=== PATIENT | male | born 1990 | race Hispanic/Latino ===

== ENCOUNTER 2017-12-31 06:58 | Emergency (ER) | payer BC, OTHER ==
[2017-12-31 07:19] VITALS: BP 119/80; PULSE 77; RESP 16; TEMP 98.5; O2SAT 98; BMI 27.7
--- NOTE | 2017-12-31 07:30 | ED PDOC ---
HPI: Chest Pain Time Seen by Provider: 12/31/17 07:23 History Per: Patient Onset/Duration Of Symptoms: Days (3) Current Symptoms Are (Timing): Still Present Severity: Moderate Quality: Sharp Exacerbating Factors: Deep Breathing, Other (Lying down) Additional Complaint(s): Right lower ant rib pain x 3 days. No h/o trauma. Worse on inspiration and lying flat. Denies cough fever or SOB. Denies abd pain. Past Medical History Vital Signs: Last Vital Signs Temp 98.5 F 12/31/17 07:18 Pulse 77 12/31/17 07:18 Resp 16 12/31/17 07:18 BP 119/80 12/31/17 07:18 Pulse Ox 98 12/31/17 07:31 - Medical History PMH: No Chronic Diseases - Family History Family History: States: Unknown Family Hx - Home Medications Home Medications: Ambulatory Orders Medication Instructions Recorded Cephalexin [cephalexin] 500 mg PO Q6 #28 cap 04/30/16 Azithromycin [Zithromax] 250 mg PO DAILY #6 tab 12/31/17 Naproxen [Naprosyn] 500 mg PO Q12H #20 tab 12/31/17 - Allergies Allergies/Adverse Reactions: Allergies Allergy/AdvReac Type Severity Reaction Status Date / Time peanut Allergy ANAPHYLAXIS Verified 04/30/16 19:08 Review of Systems Constitutional: Negative for: Fever Cardiovascular: Positive for: Chest Pain Respiratory: Positive for: Pleuritic Pain. Negative for: Cough, Shortness of Breath Gastrointestinal: Negative for: Abdominal Pain Physical Exam - Physical Exam Appears: Positive for: Non-toxic Skin: Positive for: Normal Color, Warm, DRY Cardiovascular/Chest: Positive for: Regular Rate, Rhythm, Chest Non Tender Respiratory: Positive for: CNT, Normal Breath Sounds Gastrointestinal/Abdominal: Positive for: Bowel Sounds, Soft. Negative for: Tenderness Back: Negative for: L CVA Tenderness, R CVA Tenderness Neurologic/Psych: Positive for: Alert, Oriented - ECG O2 Sat by Pulse Oximetry: 98 Disposition - Clinical Impression Clinical Impression: Atelectasis - Patient ED Disposition Is Patient to be Admitted: No Counseled Patient/Family Regarding: Studies Performed, Diagnosis, Need For Followup, Rx Given - Disposition Referrals: [facility] [Outside] Disposition: Routine/Home Disposition Time: 07:49 Condition: FAIR Prescriptions: Azithromycin [Zithromax] 250 mg PO DAILY #6 tab Naproxen [Naprosyn] 500 mg PO Q12H #20 tab Instructions: Atelectasis
--- NOTE | 2017-12-31 10:29 | RAD ---
Date of service: 12/31/2017 HISTORY: Right sided chest pain COMPARISON: No prior. TECHNIQUE: Chest PA and lateral FINDINGS: LUNGS: Linear scar/ atelectasis right middle lobe. No acute infiltrate. PLEURA: No significant pleural effusion identified. No pneumothorax apparent. CARDIOVASCULAR: Normal. OSSEOUS STRUCTURES: No significant abnormalities. VISUALIZED UPPER ABDOMEN: Normal. OTHER FINDINGS: None. IMPRESSION: No active disease.
== END 2017-12-31 07:58 | disposition home or self-care (01) ==
LOC: H.ER 06:58
DX: J98.11 Atelectasis (principal)